=== PATIENT | female | born 2000 | race Caucasian/White ===

== ENCOUNTER 2023-04-29 12:21 | Inpatient (IN) | payer OTHER ==
[~2023-04-29] VITALS: Ht 149.9 cm; Wt 49.0 kg
== END 2023-05-01 14:02 | disposition home or self-care (01) | DRG 831 ==
LOC: OBS/DEL 12:21 → OB/GYN 17:34 → LDR 17:34 → OB/GYN 04-30 14:14
PROVIDERS: ADMIT Obstetrics & Gynecology; ATTEND Obstetrics & Gynecology
PROC: BY4FZZZ Ultrasonography of Third Trimester, Single Fetus (ICD-10-PCS; principal; 2023-04-29)
PROC: BU4CZZZ Ultrasonography of Uterus and Ovaries (ICD-10-PCS; 2023-04-29)
PROC: 4A1HXCZ Monitoring of Products of Conception, Cardiac Rate, External Approach (ICD-10-PCS; 2023-04-29)
DX: O36.5930 Maternal care for other known or suspected poor fetal growth, third trimester, not applicable or unspecified (principal); O60.03 Preterm labor without delivery, third trimester; O36.8130 Decreased fetal movements, third trimester, not applicable or unspecified; O26.843 Uterine size-date discrepancy, third trimester; Z3A.34 34 weeks gestation of pregnancy; Z20.822 Contact with and (suspected) exposure to COVID-19

== ENCOUNTER 2025-06-10 00:29 | Emergency (ER) | payer OTHER ==
[~2025-06-10] VITALS: Ht 149.9 cm; Wt 40.4 kg
[~2025-06-10 00:29] MED LIST: ADULT LOW DOSE81 M1 PO; PRENATAL TABLE1 EAC4 PO
[2025-06-10 00:33] VITALS: BP 92/84; O2SAT 98
[2025-06-10] MEDS ORDERED: PROMETHAZINE HCL 50 MG/ML AMPUL IM STA (02:46)
[2025-06-10] MEDS ORDERED: FAMOTIDINE/PF 20 MG/2 ML VIAL IV PUSH STA (02:46)
[2025-06-10] MEDS ORDERED: 0.9 % SODIUM CHLORIDE 1,000 ML IV ONE (03:00)
[2025-06-10 03:58] LABS: BASO % 0.1 % (0.1-1.2); EOS # 0.00 (0.04-0.54); EOS % 0.0 % (0.7-7.0); LYMPH # 1.03 (1.18-3.74); LYMPH % 9.7 % (19.3-53.1); MEAN PLATELET VOLUME 13.10 fl (9.4-12.4); MONO # 0.39 (0.24-0.82); MONO % 3.7 % (4.7-12.5); NEUT # 9.19 (1.56-6.13); NEUT % 86.3 % (34.0-71.1); RED CELL DISTRIBUTION WIDTH 12.2 % (11.6-14.4)
[2025-06-10 04:12] LABS: ALT/SGPT 16.0 U/L (12-78); AST/SGOT 20.0 U/L (15-37); BILIRUBIN TOTAL 0.73 mg/dL (0.3-1.2); BUN CREA RATIO 15.0 (7.0-25.0); CREATININE SERUM 0.46 mg/dL (0.55-1.02); GFR 162.95; GLOBULINA 3.5 G/DL (2.4-3.5); GLUCOSE FASTING 100.0 mg/dL (65-100); OSMOLALITY SERUM 283.0 MOSM/KG (275-295)
[2025-06-10] MEDS ORDERED: ONDANSETRON HCL 2 MG/ML VIAL IV STA (05:19)
[2025-06-10] MEDS ORDERED: ZOFRAN8 MG PO (08:23)
[2025-06-10] MEDS ORDERED: PEPCID40 MG PO ×2 (08:23)
== END 2025-06-10 08:56 ==
LOC: ER 01:07
PROVIDERS: General Practice
DX: R11.10 Vomiting, unspecified (principal); Z88.0 Allergy status to penicillin